=== PATIENT | male | born 1975 | race Caucasian/White ===

== ENCOUNTER 2017-02-01 10:52 | Emergency (ER) | payer BC ==
[~2017-02-01] VITALS: Ht 198.1 cm; Wt 103.3 kg
[~2017-02-01 10:52] MED LIST: ALPR-411 PO; MULT-513 PO; OMEP20CA9 PO; PRED10TA PO
[2017-02-01 11:02] VITALS: Ht 198.1 cm; Wt 103.3 kg
[2017-02-01] MEDS ORDERED: LIDOCAINE HCL 1% 20 ML VIAL ONE (11:16)
[2017-02-01] MEDS ORDERED: DIPHTHERIA/TETANUS/PERTUSSIS 0.5 ML SYR/VIAL IM. ONE (12:15)
[2017-02-01 12:31] VITALS: BP 132/88; PULSE 60; TEMP 36.8; O2SAT 98
--- NOTE | 2017-02-01 13:36 | EMERGENCY ROOM VISIT NOTE ---
History First contact with patient: 11:26 Chief Complaint: LACERATION/CUT (SUT/DERMABOND) Stated Complaint: CUT EAR Nursing Triage Summary: triage note: pt reports "a piece of tin was hanging off the garage and cut my left ear." happend at aprox 1000 today. History of Present Illness The patient is a 41 year old male who presents to the Emergency Room with complaints of a laceration to his left ear. The patient reports that he walked into a metal roof, cutting his ear. The patient denies any hearing loss or left facial pain. He also denies any neck pain or other injuries from this incident. The patient is uncertain of his last tetanus immunization, but believes that it may have been more than 8 years ago. Review of Systems 6 system review was performed and was negative except for pertinent positives and negatives as indicated in history of present illness Past Medical/Surgical History Medical Problems: (1) Testicle cancer Family History Diabetes mellitus Heart disease Social History Smoking Status: Never Smoker Marital Status: Housing Status: lives with significant other Occupation Status: employed Current/Historical Medications Scheduled Alprazolam (Xanax), 0.5 MG PO PRN Multivitamins/Minerals (Mvi With Minerals), 1 TAB PO DAILY Omeprazole (Prilosec), 20 MG PO DAILY Physical Exam Vital Signs Date Time Temp Pulse Resp B/P (MAP) Pulse Ox O2 Delivery O2 Flow Rate FiO2 02/01/17 12:31 36.8 60 18 132/88 98 02/01/17 11:02 36.8 66 18 138/83 98 Room Air Pain Rating (0-10): 4.0 Physical Exam CONSTITUTIONAL: Healthy and well nourished. Alert and oriented X 3 with positive affect. HEENT: Examination shows a laceration from the antihelix into the samantha. Total laceration length is 2 cm. There is no active bleeding on initial exam. There does not appear to be any cartilage laceration, and there is no through and through laceration to the posterior ear. There is no hemotympanum or trauma to the auditory canal. NECK: Full active range of motion without discomfort. MUSCULOSKELETAL: Full range of motion of all joints without discomfort. INTEGUMENTARY: No rash or other significant dermatologic conditions noted. NEUROLOGIC: No focal neurologic deficits noted. Medical Decision & Procedures Medications Administered Medications (Trade) Dose Ordered Sig/John Route Start Time Stop Time Status Last Admin Dose Admin Diphtheria/ Pertussis/Tetanus Vacc (Adacel Inj) 0.5 ml ONCE ONCE IM. 02/01/17 12:15 02/01/17 12:16 DC 02/01/17 12:16 0.5 ML Procedure Laceration repair was performed under local anesthesia after receiving verbal consent from the patient. Using buffered 1% lidocaine without epinephrine, good local anesthesia was administered. The peripheral tissue was cleansed with iodine, then the wound was irrigated with normal saline. The wound was then approximated using 6-0 nylon simple interrupted sutures. Bacitracin dressing was applied. ED Course Patient history and physical exam were performed. Nurse's notes were reviewed. Vital signs were reviewed and normal. Laceration repair was performed under local anesthesia. The patient was provided additional verbal and written wound care instructions. Ice for swelling. Ibuprofen or Tylenol as needed for pain. Suture removal in 7 days, or seek reevaluation sooner for any signs of wound infection. The patient was happy with plan of care, voiced understanding of all discharge instructions, and denied any pain at the time of discharge. Medical Decision Medication Reconcilliation Current Medication List: was personally reviewed by sd Blood Pressure Screening Patient's blood pressure: Normal blood pressure Impression Primary Impression: Laceration of ear Departure Information Dispostion Home / Self-Care Condition GOOD Forms HOME CARE DOCUMENTATION FORM, IMPORTANT VISIT INFORMATION Patient Instructions [facility] Additional Instructions Keep wound clean and dry. Do not allow any crusting or dried blood to accumulate on sutures. If this occurs, use a 1:1 solution of hydrogen peroxide/ water on a Q-tip to clean the wound. Use an antibiotic ointment for 4 days, then let wound dry. Suture removal in 7 days. Return sooner for any signs of infection (increasing redness, swelling, drainage). Ice for swelling. Ibuprofen 600 mg and/or Tylenol 1000 mg every 6 hrs as needed for pain. Problem Qualifiers Primary Impression: Laceration of ear Encounter type: initial encounter Laterality: left Qualified Codes: S01.312A - Laceration without foreign body of left ear, initial encounter
== END 2017-02-01 12:32 | disposition home or self-care (01) ==
LOC: C.EDB 10:53 → C.EDD 12:32
DX: S01.312A Laceration without foreign body of left ear, initial encounter (principal); W26.8XXA Contact with other sharp object(s), not elsewhere classified, initial encounter; Z85.47 Personal history of malignant neoplasm of testis; Z83.3 Family history of diabetes mellitus; Z23 Encounter for immunization

== ENCOUNTER → 2017-02-15 | Outpatient (CLI) | payer BC ==
[~2017-02-15] MED LIST changes: -PRED10TA PO
[2017-02-18 09:53] LABS: AFP TUMOR MARKER SERUM 2.9 NG/ML (<6.1)
== END | disposition home or self-care (01) ==
LOC: C.LABBFT 10:26
PROVIDERS: ATTEND Urology
DX: C62.90 Malignant neoplasm of unspecified testis, unspecified whether descended or undescended (principal)

== ENCOUNTER → 2017-04-22 | Outpatient (CLI) | payer BC ==
[~2017-04-22] MED LIST changes: +OPTIRAY 320 IV PRN
--- NOTE | 2017-04-22 08:28 | DIAGNOSTIC IMAGING REPORT ---
CT SCAN OF THE CHEST WITH IV CONTRAST CLINICAL HISTORY: Sarcoidosis. COMPARISON STUDY: Chest CT scans dated 02/06/2016, 10/22/2014, and 07/14/2009. TECHNIQUE: Following the IV administration of 92 cc of Optiray 320, CT scan of the thorax was performed from the thoracic inlet to the upper abdomen. Images are reviewed in the axial, sagittal, and coronal planes. IV contrast was administered without complication. A dose lowering technique was utilized adhering to the principles of ALARA. CT DOSE: 497.77 mGy.cm FINDINGS: Thyroid: Imaged portions of the thyroid gland are normal in size and attenuation. Thoracic aorta: The thoracic aorta is normal in caliber and demonstrates 4-vessel arch variant anatomy. No dissection is seen. Pulmonary vasculature: The pulmonary trunk is normal in caliber. There are no filling defects identified in the central pulmonary vessels to indicate pulmonary embolus. Note that this examination was not protocoled for evaluation of the pulmonary arteries. Heart: The heart is mildly enlarged and without pericardial effusion. Lungs and pleural spaces: There is no airspace consolidation or pleural effusion. The trachea and central airways are clear. Scattered tiny calcified granulomas are observed. There is a 7 mm pleural-based nodule in the left lower lobe seen on image #[id number]. This is unchanged dating back to 2014 and of doubtful significance. No new pulmonary nodules are identified. Mediastinum: There is no mediastinal lymphadenopathy. Licha: Clear. Axillae: There is no axillary lymphadenopathy. Upper abdomen: There is a tiny hiatal hernia. Partially visualized upper abdominal viscera is otherwise within normal limits. The spleen is normal in size. Skeletal structures: No lytic or blastic bony lesions are seen. IMPRESSION: 1. There is no airspace consolidation or pleural effusion. 2. There is no mediastinal or hilar lymphadenopathy. 3. Cardiomegaly. 4. A 7 mm pleural-based nodule in the left lower lobe is unchanged dating back to 2014 and of doubtful significance. No new pulmonary nodule is identified. Electronically signed by: Link Moss M.D. 04/22/2017 8:26 AM Dictated Date/Time: 04/22/2017 8:21 AM
== END | disposition home or self-care (01) ==
LOC: C.CTS 07:52
PROVIDERS: ATTEND Internal Medicine Pulmonary Disease
DX: D86.9 Sarcoidosis, unspecified (principal); C62.90 Malignant neoplasm of unspecified testis, unspecified whether descended or undescended; I51.7 Cardiomegaly; R91.1 Solitary pulmonary nodule

== ENCOUNTER → 2017-05-22 | Outpatient (CLI) | payer BC ==
[~2017-05-22] MED LIST changes: -OPTIRAY 320 IV PRN
[2017-05-22 17:24] LABS: ESTIMATED AVERAGE GLUCOSE 117 mg/dl; HA1C FLAG Normal (Normal)
== END | disposition home or self-care (01) ==
LOC: C.LAB1850 15:40
PROVIDERS: ATTEND Internal Medicine Pulmonary Disease
DX: R73.9 Hyperglycemia, unspecified (principal)

== ENCOUNTER → 2017-08-07 | Outpatient (CLI) | payer BC ==
[2017-08-07 13:09] LABS: BASO % 0.5 %; BASO ABS # 0.02 K/uL (0-0.2); EOS % 1.5 %; EOS ABS # 0.06 K/uL (0-0.5); HEMOGLOBIN 15.2 g/dL (14.0-18.0); IG# 0.01 K/uL (0.00-0.02); LYMPH % 22.5 %; LYMPH ABS # 0.88 K/uL (1.2-3.4); MEAN CELL VOLUME 90.2 fL (80-100); MEAN CORPUSCULAR HEMOGLOBIN 30.5 pg (25-34); MEAN CORPUSCULAR HGB CONC 33.8 g/dl (32-36); MEAN PLATELET VOLUME 10.6 fL (7.4-10.4); MONO % 9.7 %; MONO ABS # 0.38 K/uL (0.11-0.59); NEUT % 65.5 %; NEUT ABS # 2.56 K/uL (1.4-6.5); PLATELET COUNT 219 K/uL (130-400); RED CELL DISTRIBUTION WIDTH CV 13.3 % (11.5-14.5); RED CELL DISTRIBUTION WIDTH SD 43.3 fL (36.4-46.3); WHITE BLOOD COUNT 3.91 K/uL (4.8-10.8)
[2017-08-07 14:07] LABS: ALBUMIN 4.3 gm/dl (3.4-5.0); ALT/SGPT 43 U/L (12-78); AST/SGOT 18 U/L (15-37); BLOOD UREA NITROGEN 14 mg/dl (7-18); CALCIUM 9.2 mg/dl (8.5-10.1); CARBON DIOXIDE 29 mmol/L (21-32); CHOLESTEROL 185 mg/dl (0-200); CREATININE 1.16 mg/dl (0.60-1.40); GLUCOSE 65 mg/dl (70-99); POTASSIUM 4.4 mmol/L (3.5-5.1); SODIUM 138 mmol/L (136-145)
[2017-08-07 14:10] LABS: ALKALINE PHOSPHATASE 72 U/L (45-117); LDL CHOLESTEROL CALCULATED 94 mg/dl; TOTAL PROTEIN 7.4 gm/dl (6.4-8.2)
== END | disposition home or self-care (01) ==
LOC: C.LABBFT 10:46
PROVIDERS: ATTEND Internal Medicine
DX: E78.00 Pure hypercholesterolemia, unspecified (principal); D86.9 Sarcoidosis, unspecified

== ENCOUNTER → 2018-02-03 | Outpatient (CLI) | payer BC ==
--- NOTE | 2018-02-03 08:42 | DIAGNOSTIC IMAGING REPORT ---
CHEST 2 VIEWS ROUTINE CLINICAL HISTORY: TESTICULAR CANCER COMPARISON STUDY: No previous studies for comparison. FINDINGS: The cardiac and mediastinal contours are normal. There is no evidence of focal pulmonary consolidation. There is no evidence of failure. No pleural effusions are visualized.[ IMPRESSION: No active disease in the chest. Electronically signed by: Deniz Olvera M.D. 02/03/2018 8:41 AM Dictated Date/Time: 02/03/2018 8:39 AM
== END | disposition home or self-care (01) ==
LOC: C.RAD 08:17
PROVIDERS: ATTEND Urology
DX: C62.90 Malignant neoplasm of unspecified testis, unspecified whether descended or undescended (principal)

== ENCOUNTER 2018-02-17 20:56 | Emergency (ER) | payer BC ==
[~2018-02-17] VITALS: Ht 198.1 cm; Wt 105.2 kg
[2018-02-17 21:00] VITALS: TEMP 36.7; Ht 198.1 cm; Wt 105.2 kg
[2018-02-17] MEDS ORDERED: KETOROLAC TROMETHAMINE 60 MG/2 ML VIAL IM STA (22:01)
[2018-02-17] MEDS ORDERED: LIDOCAINE 1% BUFFERED INJ 20 ML VIAL INFIL ONE (22:15)
--- NOTE | 2018-02-17 22:47 | DIAGNOSTIC IMAGING REPORT ---
LEFT HAND 3 VIEWS HISTORY: Arrow to left hand posterior between 1st/2nd digit COMPARISON: None. FINDINGS: No acute fracture or dislocation within the left hand. Soft tissue laceration between the first and second metacarpal. Small ossific densities dorsal to the wrist consistent with old fractures. No radiopaque foreign bodies. IMPRESSION: Soft tissue laceration between the first and second metacarpals. No fractures. Electronically signed by: Curtis Khan M.D. 02/17/2018 10:46 PM Dictated Date/Time: 02/17/2018 10:45 PM
[2018-02-17] MEDS ORDERED: CEPHALEXIN 500MG HOME PACK 1 EA BTL PO ONE (23:30)
[2018-02-17] MEDS ORDERED: HYDROCODONE/ACETAMIN 5/325MG TAB PO ONE (23:30)
[2018-02-17] MEDS ORDERED: NORCO 5/325MG HOME PACK PO ONE (23:45)
[2018-02-18] MEDS ORDERED: CEPH500C PO (00:28)
[2018-02-18 00:35] VITALS: BP 142/76; PULSE 70; O2SAT 98
--- NOTE | 2018-02-18 23:17 | EMERGENCY ROOM VISIT NOTE ---
History First contact with patient: 21:53 Chief Complaint: LACERATION/CUT (SUT/DERMABOND) Stated Complaint: CUT ON LEFT HAND Nursing Triage Summary: Patient was shooting arrow and carbon exploded into left hand History of Present Illness The patient is a 42 year old male who presents to the Emergency Room with complaints of laceration to his left hand that occurred about 1 hour ago. The patient states that he is an avid argelia and was shooting targets with a bow and arrow. The patient states that he juanjo the bowel, let go of the arrow, and believes the back end of the arrow at the fletchings struck the bow and shattered into multiple pieces. He states these pieces struck into his left hand causing his injury. The patient has difficulty moving his thumb because of the injury. Bleeding is well controlled. He is reportedly up-to-date on his tetanus and rates his current discomfort a 6/10. Review of Systems More than 10 systems were reviewed and otherwise negative with the exception of history of present illness. Past Medical/Surgical History Medical Problems: (1) Testicle cancer Family History Diabetes mellitus Heart disease Social History Smoking Status: Never Smoker Marital Status: Housing Status: lives with significant other Occupation Status: employed Current/Historical Medications Scheduled Cephalexin Monohydrate (Keflex), 500 MG PO TID Omeprazole (Prilosec), 20 MG PO DAILY Physical Exam Vital Signs Date Time Temp Pulse Resp B/P (MAP) Pulse Ox O2 Delivery O2 Flow Rate FiO2 02/18/18 00:35 70 18 142/76 98 02/17/18 22:13 62 16 135/71 98 Room Air 02/17/18 21:00 36.7 64 18 137/87 100 Room Air Physical Exam VITALS: Vitals are noted on the nurse's note and reviewed by myself. Vital signs stable. GENERAL: Well-developed, well-nourished, white male, who is in no acute distress and resting comfortably. Patient is cooperative with the examination. HEAD: Normocephalic atraumatic. HEART: Regular rate and rhythm without murmurs gallops or rubs. LUNGS: Clear to auscultation bilaterally without wheezes, rales or rhonchi. No retractions or accessory muscle use. MUSCULOSKELETAL: There is a 2.8 centimeter curvilinear laceration to the posterior aspect of the left hand between the first and second digits. This does gape and will require repair. There is persistent, but mild bleeding. The wound is quite contaminated. The patient has difficulty with flexing and extending at the thumb, although neurovascular status is intact. Full range of motion of the left second finger is noted NEURO: Patient was alert and oriented to person place and time. CN II through XII grossly intact. Medical Decision & Procedures ER Provider Diagnostic Interpretation: LEFT HAND 3 VIEWS HISTORY: Arrow to left hand posterior between 1st/2nd digit COMPARISON: None. FINDINGS: No acute fracture or dislocation within the left hand. Soft tissue laceration between the first and second metacarpal. Small ossific densities dorsal to the wrist consistent with old fractures. No radiopaque foreign bodies. IMPRESSION: Soft tissue laceration between the first and second metacarpals. No fractures. Medications Administered Medications (Trade) Dose Ordered Sig/John Route Start Time Stop Time Status Last Admin Dose Admin Ketorolac Tromethamine (Toradol Inj) 60 mg NOW STAT IM 02/17/18 22:01 02/17/18 22:03 DC 02/17/18 22:12 60 MG Cephalexin Monohydrate (Keflex 500MG Home Pack) 1 homepack NOW ONCE PO 02/17/18 23:30 02/17/18 23:31 DC 02/17/18 23:44 1 HOMEPACK Acetaminophen/ Hydrocodone Bitart ([place] 5/325 Tab) 1 tab NOW ONCE PO 02/17/18 23:30 02/17/18 23:31 DC 02/17/18 23:44 1 TAB Acetaminophen/ Hydrocodone Bitart ([place] 5/325mg Home Pack) 1 homepack UD ONCE PO 02/17/18 23:45 02/17/18 23:46 DC 02/17/18 23:44 1 HOMEPACK Procedure Laceration repair. Patient elects to have their laceration repaired. Verbal consent was obtained to perform the procedure. There is an abundance of materials available for the procedure. Patient is not allergic to latex. Using sterile technique the wound was cleaned with Betadine. The area was sterilely draped. 8 ml of 1% buffered lidocaine was used to anesthetize the left hand laceration in a local fashion. Once the patient was anesthetized, the wound was copiously irrigated under pressure with sterile saline. The wound was explored and there was exposure of the proximal bone of the left thumb. Additionally there were several 1.5-2.0 cm long foreign bodies within the wound itself. These extend down towards the distal end of the left thumb, and were gently removed with traction. These appear to be foreign bodies from the arrow itself. Additionally there are innumerable 1-2 mm foreign bodies that were meticulously removed and irrigated from the wound.. The laceration was loosely repaired using 4 simple interrupted 4-0 nylon sutures. Hemostasis was achieved. The area was cleaned with sterile saline and dressed with bacitracin ointment and bandage. Patient tolerated the procedure well without complications. Blood loss was negligible. ED Course Physical exam and history were performed. Nursing notes, EMR, and Medication List were personally reviewed. Patient appears to have suffered laceration with multiple foreign bodies to his left hand after an arrow broke during target practice. The patient appears uncomfortable and was given IM Toradol. X-ray was ordered as well. Suture setup was performed by nursing. The wound is quite deep, extending down into the bone and towards the distal end of them. An x-ray was performed and does not show distinct bony injury or radiopaque foreign body. On examination there are multiple identifiable foreign bodies, measuring as long as 2.0 cm x 2 mm in dimension. I did remove these when identified. The patient also has several smaller foreign bodies, as well as multiple hair-like fibers within the wound. The wound was copiously irrigated and I meticulously remove these. In total more than 1 hour was spent removing foreign material from the wound. At this time I am not able to identify additional foreign bodies, however there is concerned there could be deeper injury towards the distal end of the thumb. I discussed the case with my attending physician, as well as the on-call orthopedist, Dr. Evans. Dr. Evans recommended loose closure and antibiotics. They will follow-up with the patient in the office tomorrow. This does seem reasonable and the patient's laceration post with 4 loose sutures. The patient was given information to follow-up with them in the morning, as he may need additional evaluation. The patient is to return to the ER if he has any difficulty with being seen. He was otherwise invited back with any new, worsening, or concerning symptoms. The chart was completed utilizing [employer] Voice Recognition Software. Grammatical errors, random word insertions, pronoun errors, and incomplete sentences are an occasional consequence of this system due to software limitations, ambient noise, and hardware issues. Any formal questions or concerns about the content, text, or information contained within the body of this dictation should be directly addressed to the provider for clarification. . Medical Decision Differential diagnosis includes, but is not limited to: Laceration, abrasion, foreign body, contusion, ligamentous injury, foreign body, and others Impression Primary Impression: Laceration of left hand Departure Information Dispostion Home / Self-Care Condition GOOD Prescriptions Cephalexin Monohydrate (Keflex) 500 Mg Cap 500 MG PO TID for 7 Days, #21 CAP Prov: Grover Bahtt PA-C 02/18/18 Referrals Mike Evans D.O. Forms HOME CARE DOCUMENTATION FORM, IMPORTANT VISIT INFORMATION Patient Instructions [facility], ED Laceration All Additional Instructions You were seen and evaluated today on an emergency basis only. This is not a substitute for, or an effort to provide, complete comprehensive medical care. It is not possible to recognize and treat all injuries or illnesses in a single emergency department visit. For this reason it is recommended that you followup with [facility] , Dr. Evans's office, tomorrow by telephone to arrange a follow-up appointment in the next 12-36 hours. Let the office know we spoke directly with Dr. Evans and they would like to see you. Keep wound clean and dry. Do not allow any crusting or dried blood to accumulate on sutures. If this occurs, use a mild soap/water on a Q-tip to clean the wound. Do not use Peroxide to clean the wound as this can delay healing Use an antibiotic ointment like Bacitracin for 3-4 days, then let wound dry. You may bathe and shower as normal, but DO NOT SOAK the wound. Suture removal will be performed by Orthopede[facility] Return sooner for any signs of infection, increasing redness, swelling, or drainage. For baseline pain relief you may alternate ibuprofen and acetaminophen every 4 hours for pain control. Take 600 mg ibuprofen (Advil) and then 4 hours later take 1000 mg acetaminophen (Tylenol). Do not take more than 3000 mg acetaminophen in a single day. [place] (hydrocodone/acetaminophen) 5/325 mg: Take ONE pill by mouth every 6 hours as needed for worsening breakthrough pain. Do not drink or drive on [place]. This medication will likely make you tired. Do not take [place] and Tylenol at the same time as both contain acetaminophen. [place] may cause constipation. You may wish to take an [id number] stool softener like Colace if this occurs. Cephalexin(Keflex) 500mg: Take one pill 3 times daily for 7 days to prevent infection. All antibiotics can cause diarrhea. If this occurs and you feel worse or it does not resolve in 1-2 days follow up with your doctor or return to the Emergency Department as this could be signs of serious underlying problems. Any medication can cause an allergic reaction, stop the pills immediately and return to the ER for rash, hives, breathing difficulties, or swelling. You are welcome to return to the emergency department anytime with new, worsening, or concerning symptoms.
== END 2018-02-18 00:35 | disposition home or self-care (01) ==
LOC: C.EDB 20:57 → C.EDA 02-18 00:35
DX: S61.422A Laceration with foreign body of left hand, initial encounter (principal); W21.89XA Striking against or struck by other sports equipment, initial encounter

== ENCOUNTER 2021-09-08 22:28 | Observation (INO) ==
[2021-09-08] MEDS ORDERED: ONDANSETRON INJ 2 MG/ML 2 ML VIAL IV STA (22:46)
[2021-09-08] MEDS ORDERED: MoRPHine SULFATE 4 MG/ML 1 ML CARP\\VIAL IV STA (22:46)
--- NOTE | 2021-09-08 22:50 | Emergency Department Note ---
History of Present Illness General Chief complaint: Abdominal Pain Stated complaint: ABD PAIN, NAUSEA Time Seen by Provider: 09/08/21 22:35 History of Present Illness Maximum Pain Intensity: 7 This is a 46-year-old male that presents to the emergency department via private vehicle accompanied by female with complaints of "abdominal pain, nausea". The patient notes that last evening after dinnertime he developed abdominal pain just superior to the umbilicus that radiated to his back. Pain has worsened since that time. Current pain 7/10. He has associated nausea, vomiting and felt warm today x2. The patient denies any history of abdominal surgeries. The patient does have a history of lumbar surgery x1 as well as testicular surgery. Home Medications Medication Instructions Recorded Confirmed Type alprazolam 0.25 mg tablet (Xanax) 0.25 mg PO Q8 PRN 10/01/20 09/08/21 History omeprazole 20 mg capsule,delayed 20 mg PO QAM 10/28/20 09/08/21 History release Allergies Allergy/AdvReac Type Severity Reaction Status Date / Time No Known Allergies Allergy Verified 09/08/21 23:16 Past Med/Surg History Medical History Cancer Left testicular s/p orchiectomy Chronic back pain B/L LE radiculopathy Lymphadenopathy Pulmonary nodule seen on imaging study Sarcoidosis Dx 5 years ago, no flares x years Sprain of right wrist Surgical History History of bronchoscopy History of hand surgery Left debridement History of orchiectomy, unilateral Family History Mother Breast cancer Diabetes Hypertension Father Cancer Pure hypercholesterolemia Denies family history of Ovarian cancer Prostate cancer Colorectal cancer Social History Smoking Status: Never smoker Second Hand Exposure: No; Hx Alcohol Use: Yes Alcohol type: beer, wine and hard liquor Hx Substance Use: No Preferred Language: Telugu Communication Ability: Effective Hearing Ability: Normal Bundle Helper Required: No Beliefs That Will Affect Care: None marital status: Current Living Situation: Spouse and Family current occupational status: employed Feels Safe at Home: Yes Seatbelt Use: always Assistive Devices: Crutches Review of Systems A total of 10 systems reviewed and were otherwise negative Physical Exam Vital Signs Vital Signs - 24 hr 09/08/21 22:30 09/08/21 23:18 09/09/21 00:00 Temperature 37.4 C Temperature Source Temporal Artery Scan Pulse Rate 103 H Pulse Rate [Apical] 77 79 Respiratory Rate 16 14 16 Respiratory Effort / Characteristics Non-Labored Non-Labored Respiratory Depth Normal Normal Respiratory Pattern Regular Regular Blood Pressure 142/84 H Blood Pressure [Left Arm] 124/84 141/85 H Blood Pressure Mean 103 Blood Pressure Mean [Left Arm] 97 103 Blood Pressure Position Sitting Blood Pressure Position [Left Arm] Lying Lying Pulse Oximetry 95 94 98 Oxygen Delivery Method Room Air Room Air Room Air Sepsis Recent Fever Within 48 Hours No Sepsis New/Unexplained Change in Mental Status No Sepsis Action Taken by Nursing No Action Required 09/09/21 01:45 Temperature Temperature Source Pulse Rate Pulse Rate [Apical] 79 Respiratory Rate 16 Respiratory Effort / Characteristics Non-Labored Respiratory Depth Normal Respiratory Pattern Regular Blood Pressure Blood Pressure [Left Arm] 149/95 H Blood Pressure Mean Blood Pressure Mean [Left Arm] 113 Blood Pressure Position Blood Pressure Position [Left Arm] Lying Pulse Oximetry 96 Oxygen Delivery Method Room Air Sepsis Recent Fever Within 48 Hours Sepsis New/Unexplained Change in Mental Status Sepsis Action Taken by Nursing VITAL SIGNS - Vital signs and nursing notes were reviewed. Stable and afebrile. GENERAL -46 -year-old male appearing his stated age who is in no acute distress. Communicates well with provider and answers questions appropriately. SKIN - Without rashes. HEAD - NC/AT. EYES - PERRL with EOMI bilaterally. Sclera anicteric. EARS - No deformities of external structures noted on gross examination bilaterally. NOSE - Midline and without cyanosis. MOUTH/OROPHARYNX - Without perioral cyanosis. NECK - Neck with FROM. No nuchal rigidity. LUNGS - Chest wall symmetric without accessory muscle use, intercostals retractions, or central cyanosis. Normal vesicular breath sounds CTA B/L. No wheezes, rales, or rhonchi appreciated. CARDIAC - RRR with S1/S2. No murmur, rubs, or gallops appreciated. ABDOMEN - Abdominal contour normal without pulsations or visible masses. There is abdominal tenderness palpation just superior to the umbilicus. There is slight guarding but no rigidity. EXTREMITIES - No clubbing or peripheral cyanosis. No pretibial edema present. +5/5 strength noted in UE/LE bilaterally. NEUROLOGIC - Cranial nerves II through XII grossly intact. Sensory intact to light touch throughout. PSYCH - A&O, and cooperates fully with examiner. Pt is very pleasant and interacts well with examiner. Course Administered Medications Discontinued Medications Piperacillin Sod/Tazobactam Sod (Zosyn) 4.5 gm in 120 mls @ 240 mls/hr IV NOW ONE Stop: 09/09/21 01:34 Last Admin: 09/09/21 01:21 Dose: 240 mls/hr Documented by: [id number] Ioversol (Optiray 320 100ml) 95 ml IV ONCE ONE Stop: 09/09/21 00:22 Last Admin: 09/09/21 00:21 Dose: 95 ml Documented by: [id number] Morphine Sulfate (Morphine Sulfate 4 Mg/Ml 1 Ml Carp\\Vial) 4 mg IV NOW STA Stop: 09/08/21 22:47 Last Admin: 09/08/21 23:05 Dose: 4 mg Documented by: [id number] Morphine Sulfate (Morphine Sulfate 4 Mg/Ml 1 Ml Carp\\Vial) 4 mg IV NOW STA Stop: 09/09/21 00:59 Last Admin: 09/09/21 01:03 Dose: 4 mg Documented by: [id number] Ondansetron HCl (Ondansetron Inj 2 Mg/Ml 2 Ml Vial) 4 mg IV NOW STA Stop: 09/08/21 22:47 Last Admin: 09/08/21 23:06 Dose: 4 mg Documented by: [id number] Medical Decision Making Laboratory Data Result diagrams: 09/08/21 23:13 09/08/21 23:13 Lab Results 09/08/21 09/08/21 09/08/21 Range/Units 23:13 23:13 23:15 WBC 12.73 H (4.8-10.8) K/uL RBC 4.99 (4.7-6.1) M/uL Hgb 15.4 (14.0-18.0) g/dL Hct 44.1 (42-52) % MCV 88.4 (80-100) fL MCH 30.9 (25-34) pg MCHC 34.9 (32-36) g/dL RDW Std Deviation 44.4 (36.4-46.3) fL RDW Coeff of Sarah 13.6 (11.5-14.5) % Plt Count 255 (130-400) K/uL MPV 10.2 (7.4-10.4) fL Immature Gran % (Auto) 0.2 % Neut % (Auto) 87.3 % Lymph % (Auto) 6.5 % [place] % (Auto) 6.0 % Eos % (Auto) 0.0 % Baso % (Auto) 0.0 % Neut # (Auto) 11.10 H (1.4-6.5) K/uL Lymph # (Auto) 0.83 L (1.2-3.4) K/uL [place] # (Auto) 0.77 H (0.11-0.59) K/uL Eos # (Auto) 0.00 (0-0.5) K/uL Baso # (Auto) 0.00 (0-0.2) K/uL Immature Gran # (Auto) 0.03 H (0.00-0.02) K/uL Sodium 134 L (136-145) mmol/L Potassium 3.8 (3.5-5.1) mmol/L Chloride 102 (98-107) mmol/L Carbon Dioxide 22 (21-32) mmol/L Anion Gap 10 (3-11) BUN 16 (6-23) mg/dl Creatinine 0.97 (0.6-1.4) mg/dl Est Cr Clr Drug Dosing 124.8 ml/min Est GFR ( Amer) 106.6 ml/min Est GFR (Non-Af Amer) 91.9 ml/min BUN/Creatinine Ratio 16.5 (10-20) Glucose 132 H (70-99(Fasting)) mg/dl Calcium 9.0 (8.5-10.1) mg/dl Magnesium 1.8 (1.7-2.4) mg/dl Total Bilirubin 0.9 (0.2-1.0) mg/dl AST 20 (13-39) U/L ALT 31 (7-52) U/L Alkaline Phosphatase 66 (34-104) U/L Total Protein 7.7 (6.0-8.3) gm/dl Albumin 4.8 (3.4-5.0) gm/dl Globulin 2.9 (2.5-4.0) gm/dl Albumin/Globulin Ratio 1.7 (0.9-2) Lipase 12 (11-82) U/L Urine Color Urine Appearance (Clear) Urine pH (4.5-7.5) Ur Specific [place] (1.000-1.030) Urine Protein (Negative) Urine Glucose (UA) (Negative) Urine Ketones (Negative) Urine Blood (Negative) Urine Nitrite (Negative) Urine Bilirubin (Negative) Urine Urobilinogen (Negative) Ur Leukocyte Esterase (Negative) Stl C. cayetanensis PCR Cancelled Stool Rotavirus A PCR Cancelled Stl Adenov F 40/ PCR Cancelled Stool Astrovirus (PCR) Cancelled Stool Campylobacter PCR Cancelled Stl C. diff Tox A/B PCR Cancelled Stool Cryptosporidium PCR Cancelled Stl E.coli Shiga Tox PCR Cancelled Stool E coli O157 PCR Cancelled Stl Enterotoxigenic E PCR Cancelled Stool EPEC (PCR) Cancelled Stool EAEC (PCR) Cancelled Stl E. histolytica PCR Cancelled Stool Giardia Lamblia PCR Cancelled Stool Salmonella PCR Cancelled Stool Sapovirus (PCR) Cancelled Stl P. shigelloides PCR Cancelled Stl Shigella/EIEC PCR Cancelled St Y.enterocolitica PCR Cancelled Stool Vibrio (PCR) Cancelled Stl Vibrio cholerae PCR Cancelled Stl Norovirus GI/GII PCR Cancelled SARS-CoV-2, RNA, NAAT (NEGATIVE) 09/09/21 09/09/21 Range/Units 00:11 01:12 WBC (4.8-10.8) K/uL RBC (4.7-6.1) M/uL Hgb (14.0-18.0) g/dL Hct (42-52) % MCV (80-100) fL MCH (25-34) pg MCHC (32-36) g/dL RDW Std Deviation (36.4-46.3) fL RDW Coeff of Sarah (11.5-14.5) % Plt Count (130-400) K/uL MPV (7.4-10.4) fL Immature Gran % (Auto) % Neut % (Auto) % Lymph % (Auto) % [place] % (Auto) % Eos % (Auto) % Baso % (Auto) % Neut # (Auto) (1.4-6.5) K/uL Lymph # (Auto) (1.2-3.4) K/uL [place] # (Auto) (0.11-0.59) K/uL Eos # (Auto) (0-0.5) K/uL Baso # (Auto) (0-0.2) K/uL Immature Gran # (Auto) (0.00-0.02) K/uL Sodium (136-145) mmol/L Potassium (3.5-5.1) mmol/L Chloride (98-107) mmol/L Carbon Dioxide (21-32) mmol/L Anion Gap (3-11) BUN (6-23) mg/dl Creatinine (0.6-1.4) mg/dl Est Cr Clr Drug Dosing ml/min Est GFR ( Amer) ml/min Est GFR (Non-Af Amer) ml/min BUN/Creatinine Ratio (10-20) Glucose (70-99(Fasting)) mg/dl Calcium (8.5-10.1) mg/dl Magnesium (1.7-2.4) mg/dl Total Bilirubin (0.2-1.0) mg/dl AST (13-39) U/L ALT (7-52) U/L Alkaline Phosphatase (34-104) U/L Total Protein (6.0-8.3) gm/dl Albumin (3.4-5.0) gm/dl Globulin (2.5-4.0) gm/dl Albumin/Globulin Ratio (0.9-2) Lipase (11-82) U/L Urine Color Yellow Urine Appearance Clear (Clear) Urine pH 5.5 (4.5-7.5) Ur Specific [place] 1.026 (1.000-1.030) Urine Protein Negative (Negative) Urine Glucose (UA) Negative (Negative) Urine Ketones 1+ H (Negative) Urine Blood Negative (Negative) Urine Nitrite Negative (Negative) Urine Bilirubin Negative (Negative) Urine Urobilinogen Negative (Negative) Ur Leukocyte Esterase Negative (Negative) Stl C. cayetanensis PCR Stool Rotavirus A PCR Stl Adenov F 40/41 PCR Stool Astrovirus (PCR) Stool Campylobacter PCR Stl C. diff Tox A/B PCR Stool Cryptosporidium PCR Stl E.coli Shiga Tox PCR Stool E coli O157 PCR Stl Enterotoxigenic E PCR Stool EPEC (PCR) Stool EAEC (PCR) Stl E. histolytica PCR Stool Giardia Lamblia PCR Stool Salmonella PCR Stool Sapovirus (PCR) Stl P. shigelloides PCR Stl Shigella/EIEC PCR St Y.enterocolitica PCR Stool Vibrio (PCR) Stl Vibrio cholerae PCR Stl Norovirus GI/GII PCR SARS-CoV-2, RNA, NAAT NEGATIVE (NEGATIVE) Imaging Data Radiologist's Impression: CT ABDOMEN & PELVIS With Contrast: Fluid-filled dilated appendix measuring up to 11 mm in diameter with mild periappendiceal fat stranding is compatible with acute appendicitis. The appen criss is retrocecal location terminating within the midline of the lower pelvis. Tiny suspected 2-3 mm appendicolith near the base of the appendix. No evidence of perforation. No free fluid or free air visualized in the abdomen or pelvis. No radiodense gallstones. The liver, kidneys, adrenal glands and spleen are unremarkable. Mild wall thickening of the urinary bladder is likely accentuated by under distention. Radiologist: Kinjal Bull M.D. N Study ready at 00:28 and initial results transmitted at 00:57 MDM Narrative Patient was seen and evaluated as above in room A12. Review was performed of nursing notes and vital signs. I did review pertinent previous visits and patient history. After obtaining a thorough history and physical examination the above work up was performed. Patient presents to us today with abdominal pain and nausea. He is tender in the abdomen on examination. Options of care were discussed with the patient. IV access established. Labs were drawn. Patient was given IV antiemetics and analgesics. Mild leukocytosis 12.73. No anemia. Mild hyponatremia at 134. Hyperglycemia 132. Lipase normal. Urinalysis does not reveal infection. CT scan concerning for acute appendicitis. I did receive a phone call from the radiologist regarding this. I then discussed this with the on-call general surgeon, Dr. Garcia. He will admit the patient and then perform surgery on the patient later this morning. I did order him IV Zosyn after discussing options with the general surgeon. Covid testing added. Please refer to further documentation regarding his stay. Case was discussed with the attending physician. GCS: 15 In the evaluation and treatment of this patient the following differential diagnoses were entertained: Bowel obstruction, acute appendicitis, diverticulitis, perforation, UTI, pyelonephritis, kidney stone, among others. Impression & Plan Acute appendicitis Discharge Plan Visit Data Chief Complaint: Abdominal Pain Stated Complaint: ABD PAIN, NAUSEA ED Provider: Hair Lucero ED Midlevel Provider: Kermit Armenta Discharge Problem: Acute appendicitis Patient Disposition: Admitted As Inpatient Condition: Good Forms Stand Alone Forms: [facility] Prescriptions Prescriptions: No Action alprazolam [Xanax] 0.25 mg tablet 0.25 mg PO Q8 PRN (Reason: anxiety) RF: 0 omeprazole 20 mg capsule,delayed release(DR/EC) 20 mg PO QAM RF: 0 Referrals Referrals: PCP,NO [Physician] -
[2021-09-08 23:27] LABS: Hematocrit (blood only) 44.1 % (42-52); Hemoglobin 15.4 g/dL (14.0-18.0); Immature Granulocytes # (auto) 0.03 K/uL (0.00-0.02); Immature Granulocytes % (auto) 0.2 %; Lymphocytes # (auto) 0.83 K/uL (1.2-3.4); Lymphocytes % (auto) 6.5 %; Mean Corpuscular Hemoglobin 30.9 pg (25-34); Mean Corpuscular Hgb Conc 34.9 g/dL (32-36); Mean Corpuscular Volume 88.4 fL (80-100); Mean Platelet Volume 10.2 fL (7.4-10.4); Monocytes # (auto) 0.77 K/uL (0.11-0.59); Neutrophils % (auto) 87.3 %; Platelet Count 255 K/uL (130-400); RDW Coefficient of Variation 13.6 % (11.5-14.5); RDW Standard Deviation 44.4 fL (36.4-46.3); Red Blood Count 4.99 M/uL (4.7-6.1); White Blood Count 12.73 K/uL (4.8-10.8)
[2021-09-09] LABS: Albumin Globulin Ratio 1.7 (0.9-2); Albumin Level 4.8 gm/dl (3.4-5.0); BUN Creatinine Ratio 16.5 (10-20); Bilirubin,Total 0.9 mg/dl (0.2-1.0); Creatinine Clr Calc Pharmacy 124.8 ml/min; Est GFR (African American) 106.6 ml/min; Est GFR (Non-African American) 91.9 ml/min; Globulin 2.9 gm/dl (2.5-4.0); Magnesium 1.8 mg/dl (1.7-2.4); Potassium 3.8 mmol/L (3.5-5.1); Total Protein 7.7 gm/dl (6.0-8.3)
[2021-09-09 00:19] LABS: Appearance Urine Clear (Clear); Bilirubin Urine Negative (Negative); Blood Urine Negative (Negative); Color Urine Yellow; Glucose Urine UA Negative (Negative); Ketones Urine 1+ (Negative); Leukocyte Esterase Urine Negative (Negative); Nitrite Urine Negative (Negative); Protein Urine Negative (Negative); Specific Gravity Urine 1.026 (1.000-1.030); Urobilinogen Urine Negative (Negative); pH Urine 5.5 (4.5-7.5)
[2021-09-09] MEDS ORDERED: OPTIRAY 320 100ml IV ONE (00:21)
[2021-09-09] MEDS ORDERED: MoRPHine SULFATE 4 MG/ML 1 ML CARP\\VIAL IV STA (00:58)
[2021-09-09] MEDS ORDERED: PIPERACILL/TAZOBAC CONSULT ACTIVE PRN ×2 (01:05→02:08)
[2021-09-09] MEDS ORDERED: PIPERACILLIN/TAZOBACTAM 4.5 GM/120 ML BAG IV ONE (01:05)
--- NOTE | 2021-09-09 01:17 | History & Physical Report ---
Date of Service September 09, 2021 Assessment & Plan (1) Acute appendicitis: Plan: Patient with acute appendicitis Plan is to proceed with laparoscopic appendectomy possible open appendectomy IV antibiotics History of Present Illness Primary Care Provider: Bill Roy MD 46-year-old male with abdominal pain and nausea over the past [address] scan to have appendicitis with an appendicolith White blood cell count 12.7 Allergies Allergy/AdvReac Type Severity Reaction Status Date / Time No Known Allergies Allergy Verified 09/08/21 23:16 Home Medications Medication Instructions Recorded Confirmed Type alprazolam 0.25 mg tablet (Xanax) 0.25 mg PO Q8 PRN 10/01/20 09/08/21 History omeprazole 20 mg capsule,delayed 20 mg PO QAM 10/28/20 09/08/21 History release Past Med/Surg History Medical History Cancer Left testicular s/p orchiectomy Chronic back pain B/L LE radiculopathy Lymphadenopathy Pulmonary nodule seen on imaging study Sarcoidosis Dx 5 years ago, no flares x years Sprain of right wrist Surgical History History of bronchoscopy History of hand surgery Left debridement History of orchiectomy, unilateral Family History Mother Breast cancer Diabetes Hypertension Father Cancer skin Pure hypercholesterolemia Denies family history of Ovarian cancer Prostate cancer Colorectal cancer Social History Smoking Status: Never smoker Second Hand Exposure: No; Do You Dip or Chew Tobacco: Yes; Hx Alcohol Use: Yes Alcohol type: beer, wine and hard liquor Hx Substance Use: No Preferred Language: Pakistani Communication Ability: Effective Hearing Ability: Normal Inspection Machine Tender Required: No Beliefs That Will Affect Care: None marital status: Current Living Situation: Family current occupational status: employed Feels Safe at Home: Yes Safety Concerns: Feels Safe At This Time Seatbelt Use: always Assistive Devices: Crutches Review of Systems All systems reviewed & are unremarkable except as noted in HPI & below Physical Exam Constitutional: well developed and well nourished; no acute distress Eyes: + anicteric sclerae Respiratory: normal respiratory effort; no respiratory distress Cardiovascular: Rate/Rhythm: regular rate Gastrointestinal (Abdomen): Percussion/Palpation: abdomen soft Musculoskeletal: Gait: normal gait Skin: no rashes, warm and dry Neurologic: awake Psychiatric: Orientation: alert Results & Data ([facility]) Vital Signs (Past 12 Hours) Vital Signs Temp Pulse Pulse Resp BP BP Pulse Ox 09/09/21 00:00 79 16 141/85 H 98 09/08/21 23:18 77 14 124/84 94 09/08/21 22:30 37.4 C 103 H 16 142/84 H 95 Laboratory Results I did review his laboratory values Diagnostic Findings I did review his CAT scan Code Status & VTE Plan VTE Prophylaxis Plan VTE Prophylaxis will be ordered: Yes
[2021-09-09] MEDS ORDERED: PROMETHAZINE HCL 12.5 MG in SODIUM CHLORIDE 0.9% 50 ML IV PRN ×2 (02:08→06:35)
[2021-09-09] MEDS ORDERED: HYDROmorphone INJ 0.5 MG/0.5 ML SYR IV PRN ×2 (02:08)
[2021-09-09] MEDS ORDERED: ONDANSETRON INJ 2 MG/ML 2 ML VIAL IV PRN ×2 (02:08→04:55)
[2021-09-09] MEDS: LACTATED RINGER'S 1,000 ML IV SCH ×2 (03:03→08:59)
[2021-09-09] MEDS ORDERED: LIDOCAINE 2% 2 ML VIAL/AMP(20MG/ML) INFIL ONE (04:33)
[2021-09-09] MEDS ORDERED: PROPOFOL IV EMULSION 10 MG/ML 20 ML VIAL IV ONE (04:33)
[2021-09-09] MEDS ORDERED: fentaNYL citrate 100 MCG/2 ML VIAL ONE ×2 (04:34→05:41)
[2021-09-09] MEDS ORDERED: MIDAZOLAM HCL 1 MG/ML 2ML VIAL ONE (04:34)
[2021-09-09] MEDS ORDERED: BUPIVACAINE 0.5 % 5 MG/1 ML MPF 30ML VIAL ONE (04:36)
--- NOTE | 2021-09-09 04:41 | Anesthesiology Consultation ---
Date of Service September 09, 2021 Assessment & Plan (1) Encounter for pre-operative examination: Chart Review Chart Review: Acceptable Risk for Surgery and Patient NOT seen in Pre Admission Testing Consults Requested none History Surgery Operation Date: 09/09/21 05:30 Proposed Procedures p Laparoscopic Appendectomy - Erik Garcia MD, FACS Height/Weight Height: 6 ft 4 in Weight: 106.5 kg Allergies Allergy/AdvReac Type Severity Reaction Status Date / Time No Known Allergies Allergy Verified 09/08/21 23:16 Medications Home Medications Medication Instructions Recorded Confirmed Last Taken alprazolam 0.25 mg tablet (Xanax) 0.25 mg PO Q8 PRN 10/01/20 09/08/21 Unknown omeprazole 20 mg capsule,delayed 20 mg PO QAM 10/28/20 09/08/21 09/08/21 release Active Medications Generic Name Dose Route Start Last Admin Trade Name Freq PRN Reason Stop Dose Admin Hydromorphone HCl 0.5 mg 09/09/21 02:08 09/09/21 03:02 Hydromorphone Inj 0.5 Mg/0.5 Ml Syr IV 09/23/21 02:07 0.5 mg Q3HWA PRN Administration Pain (6,7,8,9,10) Lactated Ringer's 1,000 mls @ 80 mls/hr 09/09/21 02:08 09/09/21 03:03 Lr IV 10/09/21 02:07 80 mls/hr .[id number] KAYLEE Administration NPO Date Last Intake of Fluids: 09/08/21 Time Last Intake of Fluids: 23:59 Date Last Intake of Solids: 09/08/21 Time Last Intake of Solids: 23:59 Past Medical History Medical History Cancer Left testicular s/p orchiectomy Chronic back pain B/L LE radiculopathy Lymphadenopathy Pulmonary nodule seen on imaging study Sarcoidosis Dx 5 years ago, no flares x years Sprain of right wrist Past Family History Family History Mother Breast cancer Diabetes Hypertension Father Cancer skin Pure hypercholesterolemia Denies family history of Ovarian cancer Prostate cancer Colorectal cancer Past Surgical History Surgical History History of bronchoscopy History of hand surgery Left debridement History of orchiectomy, unilateral Social History Smoking Status: Never smoker tobacco type: smokeless tobacco Do You Dip or Chew Tobacco: Yes Hx Alcohol Use: Yes Alcohol type: beer, wine and hard liquor alcohol intake frequency: a few times a month Hx Substance Use: No substance use type: does not use Physical Exam Vital Signs Last Vital Signs Temp 98.1 F 09/09/21 02:09 Pulse 85 09/09/21 02:09 Resp 16 09/09/21 02:09 BP 144/85 H 09/09/21 02:09 Pulse Ox 98 09/09/21 02:09 Testing Laboratory Results 09/08/21 23:13 09/08/21 23:13 Urine Color Yellow 09/09/21 00:11 Urine Appearance Clear (Clear) 09/09/21 00:11 Urine pH 5.5 (4.5-7.5) 09/09/21 00:11 Ur Specific [place] 1.026 (1.000-1.030) 09/09/21 00:11 Urine Protein Negative (Negative) 09/09/21 00:11 Urine Glucose (UA) Negative (Negative) 09/09/21 00:11 Urine Ketones 1+ (Negative) H 09/09/21 00:11 Urine Nitrite Negative (Negative) 09/09/21 00:11 Ur Leukocyte Esterase Negative (Negative) 09/09/21 00:11
[2021-09-09] MEDS ORDERED: fentaNYL citrate 100 MCG/2 ML VIAL IV PRN (04:55)
[2021-09-09] MEDS ORDERED: ePHEDrine sulfate 50 MG/ML AMP IV PRN (04:55)
[2021-09-09] MEDS ORDERED: ATROPINE SULFATE 0.1 MG/ML 10ML SYR IV PRN (04:55)
[2021-09-09] MEDS ORDERED: SUGAMMADEX SODIUM 200 MG/2 ML VIAL IV ONE (05:16)
[2021-09-09] MEDS ORDERED: KETOROLAC 30 MG/ML VIAL ONE (05:33)
--- NOTE | 2021-09-09 05:49 | Post Operative Brief Note ---
PG Immediate Post Op with CF Date of Surgery September 09, 2021 Pre & Post Diagnosis Operation Date: 09/09/21 05:30 Pre-Op Diagnosis: Acute appendicitis Post-Op Diagnosis: Acute appendicitis, adhesions I identified the patient and participated in the time-out.: Yes Procedure Operation Date: 09/09/21 05:30 Actual Procedures p Laparoscopic Appendectomy - Erik Garcia MD, FACS Surgeon Erik Garcia MD, FACS Health Counselor Nurses Estimated Blood Loss 10 Findings Consistent with Post-Op Diagnosis Patient had acute appendicitis with chronic adhesions at the base of the appendix Specimens Specimen Description: Permanent Specimen A: Appendix
[2021-09-09] MEDS ORDERED: ACETAMINOPHEN 1,000 MG/100 ML VIAL IV ONE (05:50)
[2021-09-09] MEDS ORDERED: PIPERACILLIN/TAZOBACTAM 3.375 GM in DEXTROSE 5% 100 ML IV SCH (06:00)
[2021-09-09] MEDS ORDERED: ACETAMINOPHEN 1000 MG/100 ML IV IV ONE (06:11)
--- NOTE | 2021-09-09 06:18 | Operative Report (OR) ---
DATE OF OPERATION: 09/09/2021. NAME OF OPERATION: Laparoscopic appendectomy with lysis of adhesions. PREOPERATIVE DIAGNOSIS: Acute appendicitis. POSTOPERATIVE DIAGNOSIS: Acute appendicitis with adhesions. STAFF SURGEON: Erik Garcia MD ASSISTANTS: Nurses. ANESTHESIA: General. DESCRIPTION OF PROCEDURE: The patient was brought into the operating room and placed on the operatin g table in supine position. His lower abdomen was then prepped and draped in the usual fashion. A 0 .5% plain Marcaine was used to anesthetize tissue just above the umbilicus. Incision made carrying d issection down to the fascia, placing a Veress needle producing pneumoperitoneum. An 11 mm port was placed at this level and under visualization, three 5 mm ports were placed, one suprapubic and one 12 mm port was placed in the left lower quadrant. At this point, I tried to evaluate the appendix. It was secured in the retroperitoneum with adhesions, especially at the base of the appendix. These we re taken down and then using multiple Endo-PADMINI brown loads, the mesoappendix and surrounding tissue w ere transected and then the base of the appendix transected. After appropriate irrigation and hemost asis, the appendix was placed in an Endobag and then removed through the left lower quadrant port sit e. All ports were then removed. The umbilical site and left lower quadrant site were closed using 0 Vicryl for the fascia and then the skin was reapproximated on all incisions using subcuticular 4-0 M onocryl with Dermabond at the umbilicus and suprapubic area and Steri-Strips in the left lower quadra nt. The patient was transferred to recovery room in stable condition. Job ID: [id number]
--- NOTE | 2021-09-09 06:21 | Anesthesiology Progress Note ---
Date of Service September 09, 2021 Anesthesia Post Procedure Vital Signs Vital Signs: Temp Pulse Pulse Pulse Resp BP BP 09/09/21 06:10 76 21 124/78 09/09/21 06:00 78 22 120/73 09/09/21 05:53 96.8 F L 85 12 133/76 09/09/21 04:40 98.2 F 82 16 09/09/21 02:09 98.1 F 85 16 09/09/21 01:45 79 16 149/95 H 09/09/21 00:00 79 16 141/85 H 09/08/21 23:18 77 14 124/84 09/08/21 22:30 99.3 F 103 H 16 142/84 H BP Pulse Ox 09/09/21 06:10 95 09/09/21 06:00 93 09/09/21 05:53 94 09/09/21 04:40 144/87 H 99 09/09/21 02:09 144/85 H 98 09/09/21 01:45 96 09/09/21 00:00 98 09/08/21 23:18 94 09/08/21 22:30 95 Pain Intensity Abdomen: Pain Intensity: 6 Transfer of Care Handoff Completed per policy Notes Mental Status: alert / awake / arousable and participated in evaluation Patient Amnestic to Procedure: Yes Nausea / Vomiting: adequately controlled Pain: adequately controlled Airway Patency, RR, SpO2: stable & adequate BP & HR: stable & adequate Hydration State: stable & adequate Anesthetic Complications: no major complications apparent and Pt Satisfied with anesthetic care
[2021-09-09] MEDS ORDERED: oxyCODONE HCL IR 5 MG TAB (IMMEDIATE RELEASE) PO PRN (06:35)
[2021-09-09] MEDS ORDERED: ALPRAZolam 0.25 MG TABLET PO PRN (06:35)
[2021-09-09] MEDS ORDERED: ACETAMINOPHEN 325 MG TAB PO PRN (06:35)
[2021-09-09] MEDS ORDERED: IBUPROFEN 600 MG TAB PO PRN (06:35)
--- NOTE | 2021-09-09 07:20 | CT Scan Report ---
CT abd pelvis IV con only CLINICAL HISTORY: abd pain, nausea, vomiting COMPARISON STUDY: 05/28/2014 CT DOSE: 483.84 mGy.cm TECHNIQUE: Standard CT of the Abdomen and Pelvis was performed with IV contrast. A dose lowering yi hnique was utilized adhering to the principles of ALARA. Contrast Volume: Optiray 320, 95 ml. The patient did not receive oral contrast. FINDINGS: Lung base: The lung bases are clear. Abdominal cavity: There is no evidence for abdominal mass, adenopathy or ascites. Liver: There is homogeneous attenuation of the liver parenchyma. There is no evidence for enhancing m ass lesion. Spleen: There is homogeneous attenuation of the splenic parenchyma. There is no enhancing mass lesion . Pancreas: There is homogeneous attenuation of the pancreatic parenchyma. There is no evidence for mas s lesion or peripancreatic fluid collection. Gall Bladder: The gallbladder is well distended with no evidence for intraluminal calculi, wall thick ening or pericholecystic edema. Adrenal glands: The adrenal glands are normal in size and attenuation. There is no evidence for enhan cing mass lesion. Kidneys: There is homogeneous attenuation of the renal parenchyma bilaterally. There is no evidence f or renal calculus or hydronephrosis. There is no evidence for enhancing mass. Bowel: There is a fluid filled, dilated appendix measuring 10 to 11 mm in size. Small calcified appen dicoliths are present within its lumen. Periappendiceal inflammatory changes are present. There is no evidence for perforation or abscess. There is no evidence for free air. The appendix is retrocecal i n position and extends to the midline. The remaining bowel loops are normally placed within the abdomen and pelvis without evidence for dil atation or obstruction. There is no evidence for mass lesion. Bladder: The bladder is within normal limits with no evidence for focal mass, calculus or diverticulu m. There is mild diffuse thickening of bladder wall suspicious for chronic bladder outlet obstruction . : There is no evidence for pelvic mass or adenopathy. There is no evidence for pelvic ascites. The prostate is mildly to moderately enlarged. Vasculature: There is no evidence for aneurysmal dilatation of the abdominal aorta. Osseous structures: There is no acute osseous pathology. IMPRESSION: 1. Acute appendicitis with no evidence for perforation or abscess. ACT 112: Negative or not required by law. Electronically signed by: Bruce Miranda M.D. 09/09/2021 7:19 AM
[2021-09-09] MEDS ORDERED: PANTOprazole 40 MG TAB PO SCH (09:00)
[2021-09-09] MEDS ORDERED: SENNOSIDES 8.8 MG/5 ML UDC PO SCH (09:00)
--- NOTE | 2021-09-11 01:03 | Discharge Summary (DS) ---
DATE OF ADMISSION: 09/09/2021. DATE OF DISCHARGE: 09/09/2021. PRINCIPAL DIAGNOSIS: Acute appendicitis. PROCEDURE: The patient underwent laparoscopic appendectomy HISTORY OF PRESENT ILLNESS: The patient is a 46-year-old male presenting to the Emergency Room with acute appendicitis. He was taken to the operating room where he underwent laparoscopic appendectomy, which he tolerated very well. He was felt stable for discharge later in the day to be [facility] within 1-2 weeks. Job ID: [id number]
== END 2021-09-09 13:14 | disposition home or self-care (01) | DRG 343 ==
LOC: ED 22:28 → 3E 09-09 01:10 → INTOOBSV 09-09 01:10 → 3E 09-09 01:56